=== PATIENT | female | born 2000 | race Caucasian/White ===

== ENCOUNTER 2025-02-10 14:35 | Outpatient (AMB) | payer OTHER, SELFPAY ==
--- OUTSIDE RECORDS SUMMARY | 2019-10-18 10:00 | XMS_ITS | Continuity of Care Document ---
Author Organization [facility] Address [address] [place] [address] [address] [place] [address] Phone Care Team Providers Care Private Investigator Name Role Phone Anton Chavez MD Unavailable Unavailable Procedures Procedure Date New Patient Comprehensive Stereo Fundus Photos No Charge Advance Directives Directive Yes / No Effective Date File Name No Information Encounters Encounter Description Practice Location Reason(s) For Visit Diagnoses Date Provider Providers Copied on Encounter [facility] , [address] [place], [place] [address], [place], [place], [id number], [place] tel:[phone] Dry eye syndrome of bilateral lacrimal glands Kathy Walton. [address], [place], [place], [id number] , [place]. tel:[phone] Referring Provider: Anton Alanis, [address], [place], [address] . tel:[phone] Family History Family Member Type Diagnosis Age At Onset No Information Payers Payer name Insurance type Covered green party ID Authoriza tion(s) No Information Social History Type Description Quantity Date Captured Comments Sex Female Smoking Status No Information Chief Complaint And Reason For Visit No Information Reason For Referral Reason For Referral No Information History Of Present Illness Encounter Date Complaint History Of Prese nt Illness No Information Functional Status Date Functional Assessmen t No Information Instructions Date Instruction Additional Infor mation No Information Assessments Type Assessment Date No Information Patient Care Teams Name Effective Dates (start - stop) Status Members No Information
--- NOTE | 2025-02-10 14:39 | MHC.OFFWIV ---
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 STI testing request (non exposure) Allergies No Known Allergies Allergy (Verified 02/10/25 14:42) Do you need a note to return to daycare/school/sports/work: No HPI HPI Comments History of Present Illness Details History of Present Illness - The patient is a 24-year-old female presenting with a tick bite and concerns about possible exposure to sexually transmitted infections. - Tick bite: The patient discovered a tick on her leg behind the knee the previous night. The tick was not engorged and was when found. The patient removed it herself, causing some erythema at the site. - Unsure how long it had been attached. - The patient suspects the tick was acquired near her apartment, which [place] to [place]ed areas. - Possible exposure to sexually transmitted infections: The patient reported one episode of unprotected sexual intercourse approximately one month ago. She denies any symptoms such as vaginal discharge, pain, or fever. Review of Systems - Cardiovascular: Denies chest pain, orthopnea, or syncope. - Integumentary: Reports erythema at the site of tick bite. - Genitourinary: Denies discharge, pain, or fever. All systems reviewed and are unremarkable except as noted in HPI Physical Exam General: Cooperative, healthy appearing, comfortable, no acute distress and well developed Orientation: Patient oriented x3 Limitations: No limitations Head: Normal to inspection Ears: Hearing grossly normal bilaterally Nose: Normal External nose present Face and sinus: Normal facial exam Eyes: Appearance normal, both eyes and all related structures Neck: Normal visual inspection and Yes full ROM Respiratory: Normal respiratory effort and able to speak in complete sentences. Skin: No rashes or lesions noted Neuro: Patient oriented x3 Extremities: Normal to inspection [facility] Medical History (Updated 02/10/25 @ 14:55 by Pamella Jorgensen PA-C) Exposure to sexually transmitted disease (STD) Physical Exam Vital Signs: Last Vital Signs Temp 98.8 F 02/10/25 14:41 Pulse 110 H 02/10/25 14:41 BP 112/70 02/10/25 14:41 Pulse Ox 97 02/10/25 14:41 Oxygen Delivery Method Room Air 02/10/25 14:41 BMI result Body Mass Index 35.7 Assessment & Plan Assessment & Plan (1) Exposure to sexually transmitted disease (STD): Code(s): Z20.2 - Contact with and (suspected) exposure to infections with a predominantly sexual mode of transmission Plan: Patient was informed and verbally consented to the use of an ambient scribe for clinic note documentation during this visit. Possible Exposure To Sexually Transmitted Infections - Testing for gonorrhea and chlamydia was conducted due to reported unprotected sexual intercourse. - Patient advised to monitor for symptoms and to return if any develop for further testing. (2) Tick bite: Code(s): W57.XXXA - Bitten or stung by nonvenomous insect and other nonvenomous arthropods, initial encounter Qualifiers: Encounter type: initial encounter Site of tick bite: thigh Laterality: right Qualified Code(s): S70.361A - Insect bite (nonvenomous), right thigh, initial encounter; W57.XXXA - Bitten or stung by nonvenomous insect and other nonvenomous arthropods, initial encounter Plan: - Prophylactic treatment with doxycycline 200 mg single dose was discussed and prescribed for peace of mind, despite low risk of Lyme disease transmission. - Patient advised to monitor for symptoms such as fever, rash, or joint pain over the next month and to return if symptoms develop. Orders: Orders CT NG by PCR Urine Today W57.XXXA - Bitten or stung by nonvenomous insect and other nonvenomous arthropods, initial encounter, Z20.2 - Contact with and (suspected) exposure to infections with a predominantly sexual mode of transmission Medications: New doxycycline hyclate 200 mg (2 x 100 mg) PO once 2 tabs 0RF tick bite ppx Coding Level of Care Code New Pt Level 3 (34683) Diagnoses Exposure to sexually transmitted disease (STD) Z20.2 Tick bite of right thigh, initial encounter S70.361A; W57.XXXA Encounter type: initial encounter Site of tick bite: thigh Laterality: right
[2025-02-10 14:41] VITALS: BP 112/70; PULSE 107; TEMP 37.1; O2SAT 97; BMI 35.7
--- OUTSIDE RECORDS SUMMARY | 2025-02-10 15:07 | XMS_ITS | Clinical Summary ---
Author Organization [facility] Address [address] [facility] [address] [place] [phone] Phone Care Team Providers Care Room Service Food Server Name Role Phone Hilda Kennedy MD Primary Care Provider [phone] Allergies No known active allergies Medications spironolactone (ALDACTONE) 50 MG tablet Take 1 tablet by mouth 2 (two) times a day. 3 Active APRI 0.15-0.03 mg per tablet Take 1 tablet by mouth every morning. 3 Active dextroamphetami ne-amphetamine (ADDERALL) 10 mg Tab tablet 1 TAB(S) ORALLY 2 TIMES A DAY MORNING AND AFTERNOON 4 Active buPROPion (WELLBUTRIN XL) 150 MG ER 24 hr tablet Take 150 mg by mouth every morning. 4 Active Active Problems No known active problems Social History Tobacco Use Types Packs/Day Years Used Date Smoking Tobacco: Never Assessed Education Answer Date Recorded Are you interested in more education? Not on eufemia e 11/04/2022 Are you concerned about learning? Not on file 11/04/2022 No 11/04/2022 No 11/04/2022 Digital Access Answer Date Recorded No 11/04/2022 No 11/04/2022 Reliable internet access at home? Not on file 11/04/2022 Device with a working camera? Not on file Comments Unknown Sex and Gender Information Value Date Recorded Sex Assigned at Female 11/18/2022 12:18 PM EDT Legal Sex Female 2:31 PM EDT Gender Identity Female 11/18/2022 12:18 PM EDT Sexual Orientation Straight 11/18/2022 12 :18 PM EDT Last Filed Vital Signs Vital Sign Reading Time Taken Comments Blood Pressure 111/74 06/23/2024 9:23 AM EDT Pulse 60 06/23/2024 9:23 AM EDT Temperature 36.7 C (98 F) 06/23/2024 9:23 AM EDT Respiratory Rate - - Oxygen Saturation 99% 06/23/2024 9:23 AM EDT Inhaled Oxygen Concentration - - Weight 95.3 kg (210 lb) 06/23/2024 9:23 AM EDT Height 170.2 cm (5' 7 ) 06/23/2024 9:23 AM EDT Body Mass Index 32.89 06/23/2024 9:23 AM EDT Plan of Treatment Upcoming Encounters Date Type Department Care Team (Late st Contact Info) Description 07/18/2025 3:00 PM EDT Office Visit [facility] [address] [place] [address] [place] [address] Tanner Hoff DO [address] [facility] [place] [address] [email or web address] Health Maintenance Due Date Last Done Comments Adult Td,Tdap Booster 1998 POTASSIUM LEVEL 1998 DEPRESSION SCREENING 2010 SMOKING Hx and SMOKELESS TOBACCO SCREENING 09/30/2011 HPV VACCINES (1 - 3-dose series) 2013 HEPATITIS C SCREENING 2016 HIV ONE-TIME SCREENING (18-6 5 YEARS) 2016 PAP SMEAR 09/30/2019 INFLUENZA VACCINE (#1) 2024 , 01/21/2021, 02/06/2020 COVID-19 VACCINE (3 - 2024-2 6 season) 2024 04/21/2021, 08/13/2020 HEPATITIS A VACCINES Aged Out No long er eligible based on patient's age to complete this topic HIB VACCINES Aged Out No longer eligi ble based on patient's age to complete this topic MENINGOCOCCAL VACCINES (ACWY) Aged Out No longer eligible based on patient's age to complete this topic MENINGOCOCCAL VACCINES (B) Aged Out N o longer eligible based on patient's age to complete this topic PNEUMOCOCCAL VACCINES (0-49 years) Aged Out No longer eligible b ased on patient's age to complete this topic Medical Devices Not on file Insurance Care Teams Room Service Food Server Relationship Specialty Start Date End Date Hilda Kenneyd MD [address] [place] [address] [email or web address] PCP - General Family Medicine 11/18/22 Additional Source Comments The information contained in this document represents components of the legal health record. It is not the complete legal health record.[facility]
== END 2025-02-10 15:14 | disposition home or self-care (01) ==
PROVIDERS: Visit Provider Physician Assistant
DX: Z20.2 Contact with and (suspected) exposure to infections with a predominantly sexual mode of transmission (principal); S70.361A Insect bite (nonvenomous), right thigh, initial encounter; W57.XXXA Bitten or stung by nonvenomous insect and other nonvenomous arthropods, initial encounter

== ENCOUNTER 2025-02-10 14:35 | Outpatient (REF) | payer OTHER, SELFPAY ==
[2025-02-11 12:49] LABS: CT PCR Urine NOT DETECTED (Not Detect.); NG PCR Urine NOT DETECTED (Not Detect.)
== END 2025-02-10 14:36 | disposition home or self-care (01) ==
LOC: HO.LAB 14:35
PROVIDERS: Visit Provider Physician Assistant
DX: S70.361A Insect bite (nonvenomous), right thigh, initial encounter (principal); Z20.2 Contact with and (suspected) exposure to infections with a predominantly sexual mode of transmission; W57.XXXA Bitten or stung by nonvenomous insect and other nonvenomous arthropods, initial encounter
CPT/HCPCS: 87491; 87591; 99202